=== PATIENT | male | born 1975 | race American Indian/Alaskan Native ===

== ENCOUNTER 2016-05-22 04:22 | Emergency (ER) | payer OTHER ==
[2016-05-22 04:35] VITALS: BP 141/92; PULSE 80; RESP 16; TEMP 98; O2SAT 99
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
== END 2016-05-22 06:04 | disposition home or self-care (01) ==
LOC: H.ER 04:22
DX: M54.9 Dorsalgia, unspecified (principal); V43.52XA Car driver injured in collision with other type car in traffic accident, initial encounter; Y92.410 Unspecified street and highway as the place of occurrence of the external cause